=== PATIENT | male | born 1985 | race Caucasian/White ===

== ENCOUNTER → 2023-09-21 | Outpatient (CLI) | payer OTHER ==
[~2023-09-21] MED LIST: PARAFON FORTE500 MG PO; PERCOCET 325 MG1 TA2 PO; PREDNICOT10 MG PO
[2023-09-21 09:09] LABS: CHOLESTEROL 239 mg/dL (<200); LDL CHOLESTEROL 138 mg/dL (9-159); TRIGLYCERIDES 285 mg/dl (<150)
== END | disposition home or self-care (01) ==
LOC: LAB 08:17
PROVIDERS: ATTEND Psychiatry & Neurology Psychiatry
DX: Z51.81 Encounter for therapeutic drug level monitoring (principal); Z79.899 Other long term (current) drug therapy